=== PATIENT | male | born 1995 | race African-American/Black ===

== ENCOUNTER 2023-04-10 09:13 | Inpatient (IN) | payer MEDICAID, OTHER ==
[~2023-04-10] VITALS: Ht 185.4 cm; Wt 77.1 kg
[2023-04-10] MEDS ORDERED: IBUPROFEN 600MG TABLET PO ONE (11:15)
[2023-04-10] MEDS ORDERED: HYDROCODONE/ACETAMINOPHEN 5/325MG TABLET PO ONE (11:15)
[2023-04-10 13:25] LABS: CHLORIDE 103 mEq/L (98-107); INDEX HEMOLYSI 1 (1-3); INDEX ICTERIC 1 (1-4); INDEX LIPEMIC 1 (1-3); POTASSIUM 3.2 mEq/L (3.5-5.1); SODIUM 137 mEq/L (136-145)
[2023-04-10 13:34] LABS: ALANINE AMINOTRANSFERASE 44 IU/L (13-61); ALBUMIN 3.2 g/dL (3.4-5.0); ASPARTATE AMINOTRANSFERASE 17 IU/L (15-37); BILIRUBIN TOTAL 0.4 mg/dL (0.1-1.0); CALCIUM 8.1 mg/dL (8.5-10.1); CARBON DIOXIDE 27 mEq/L (21-32); CREATININE 0.9 mg/dL (0.6-1.3); GLUCOSE 148 mg/dL (70-105); HEMATOCRIT. 44.9 % (42.0-52.0); HEMOGLOBIN. 14.4 g/dL (14.0-18.0); MEAN CORPUSCULAR VOLUME 90.5 fL (80.0-94.0); MEAN PLATELET VOLUME 9.9 fl (7.4-10.4); PLATELET 171 x1000/uL (130-400); PROTEIN TOTAL 6.7 g/dL (6.0-8.3); RED BLOOD CELL COUNT 4.96 mill/uL (4.7-6.1); UREA NITROGEN BLOOD 15 mg/dL (7-21); WHITE BLOOD COUNT 11.7 x1000/uL (4.5-11.0)
[2023-04-10 13:38] LABS: DIFFERENTIAL COMMENT 1
[2023-04-10 14:13] LABS: PLATELET ESTIMATE NORMAL
[2023-04-10] MEDS ORDERED: VANCOMYCIN 1G PREMIX 200 ML IV SCH (15:15)
[2023-04-10] MEDS ORDERED: LEVOFLOXACIN 500MG PREMIX 100 ML IV ONE (15:15)
[2023-04-10] MEDS ORDERED: POTASSIUM CHLORIDE 20MEQ/PACKET PO ONE (15:45)
[2023-04-10 20:00] VITALS: BP 110/67; PULSE 96; RESP 20; TEMP 97.2
[2023-04-10 23:30] VITALS: BP 110/67; PULSE 96; RESP 20; TEMP 97.2
[2023-04-11] VITALS: BP 115/54; PULSE 112; RESP 20; TEMP 98.4
[2023-04-11] MEDS: HYDROCODONE/ACETAMINOPHEN 5/325MG TABLET PO PRN ×3 (00:10→23:49)
[2023-04-11 04:00] VITALS: BP 93/51; PULSE 108; RESP 20; TEMP 100.6
[2023-04-11] MEDS ORDERED: *PATIENT'S OWN MEDICATION STORAGE XX SCH (06:15)
[2023-04-11] MEDS: VANCOMYCIN 1G PREMIX 200 ML IV SCH ×3 (06:43→21:39)
[2023-04-11 07:12] LABS: HEMATOCRIT 45.3 % (42.0-52.0); HEMOGLOBIN 15.2 g/dL (14.0-18.0); MEAN CORPUSCULAR HEMOGLOBIN 30.3 pg (28.0-32.0); MEAN CORPUSCULAR HGB CONC 33.5 g/dL (31.0-37.0); MEAN CORPUSCULAR VOLUME 90.4 fL (80.0-94.0); PLATELET 169 x1000/uL (130-400); RED BLOOD CELL COUNT 5.01 mill/uL (4.7-6.1)
[2023-04-11 08:00] VITALS: BP 87/38; PULSE 91; RESP 20; TEMP 97.5
[2023-04-11 08:09] LABS: CHLORIDE 100 mEq/L (98-107); INDEX HEMOLYSI 1 (1-3); INDEX ICTERIC 1 (1-4); INDEX LIPEMIC 1 (1-3); POTASSIUM 3.4 mEq/L (3.5-5.1); SODIUM 134 mEq/L (136-145)
[2023-04-11 08:15] LABS: CALCIUM 7.9 mg/dL (8.5-10.1); CARBON DIOXIDE 26 mEq/L (21-32); GLUCOSE 97 mg/dL (70-105); UREA NITROGEN BLOOD 15 mg/dL (7-21)
[2023-04-11 12:00] VITALS: BP 86/50; PULSE 98; RESP 19; TEMP 97.6
[2023-04-11] MEDS ORDERED: SODIUM CHLORIDE 0.9% 1,000 ML IV NR (12:23)
[2023-04-11 16:00] VITALS: BP 104/52; PULSE 94; RESP 20; TEMP 98.1
[2023-04-11] MEDS ORDERED: NALOXONE HCL 0.4MG/ML VIAL IV PRN (17:45)
[2023-04-11 20:00] VITALS: BP 122/63; PULSE 87; RESP 20; TEMP 98.2
[2023-04-12] VITALS: BP 116/77; PULSE 85; RESP 20; TEMP 97.8
[2023-04-12 01:23] LABS: CLARITY URINE CLEAR (CLEAR); GLUCOSE URINE NEGATIVE (NEGATIVE); KETONES URINE NEGATIVE (NEGATIVE); LEUKOCYTE ESTERASE URINE NEGATIVE (NEGATIVE); NITRITE URINE NEGATIVE (NEGATIVE); OCCULT BLOOD URINE NEGATIVE (NEGATIVE); PROTEIN URINE NEGATIVE (NEGATIVE); SPECIFIC GRAVITY URINE 1.008 (1.005-1.030)
[2023-04-12 01:26] LABS: BACTERIA URINE NONE SEEN; WBC URINE 0-2 /hpf (0-2); YEAST URINE NONE SEEN
[2023-04-12 01:47] LABS: *AMPHETAMINES SCREEN URINE NEGATIVE (NEGATIVE); *BARBITURATES SCREEN URINE NEGATIVE (NEGATIVE); *BENZODIAZEPINES SCREEN URINE NEGATIVE (NEGATIVE); *COCAINE SCREEN URINE NEGATIVE (NEGATIVE); CANNABINOID URINE SCREEN PRESUMTIVE POSITIVE (NEGATIVE); ECSTASY MDMA SCREEN URINE NEGATIVE (NEGATIVE); OPIATES URINE SCREEN PRESUMTIVE POSITIVE (NEGATIVE); PHENCYCLIDINE URINE SCREEN NEGATIVE (NEGATIVE)
[2023-04-12 02:37] LABS: COLOR URINE YELLOW (YELLOW)
[2023-04-12 02:46] LABS: SQUAMOUS EPITHELIAL CELL URINE FEW /lpf (RARE/1+)
[2023-04-12 02:47] LABS: RBC URINE 0-2 /hpf (0-2)
[2023-04-12 04:00] VITALS: BP 136/46; PULSE 78; RESP 20; TEMP 97.5
[2023-04-12 04:19] LABS: BASOPHILS % 0.3 % (0.0-2.0); EOSINOPHILS % 2.1 % (0.0-5.0); HEMATOCRIT. 40.6 % (42.0-52.0); HEMOGLOBIN. 13.2 g/dL (14.0-18.0); LYMPHOCYTES % 11.2 % (20.0-50.0); MEAN CORPUSCULAR HEMOGLOBIN 29.3 pg (28.0-32.0); MEAN CORPUSCULAR HGB CONC 32.5 g/dL (31.0-37.0); MEAN CORPUSCULAR VOLUME 90.1 fL (80.0-94.0); MEAN PLATELET VOLUME 9.5 fl (7.4-10.4); NEUTROPHILS % 80.4 % (40.0-76.0); PLATELET 172 x1000/uL (130-400); RED BLOOD CELL COUNT 4.51 mill/uL (4.7-6.1); RED CELL DISTRIBUTION WIDTH 12.8 % (11.6-14.6); WHITE BLOOD COUNT 13.8 x1000/uL (4.5-11.0)
[2023-04-12 04:29] LABS: CHLORIDE 103 mEq/L (98-107); INDEX HEMOLYSI 1 (1-3); INDEX ICTERIC 1 (1-4); INDEX LIPEMIC 1 (1-3); POTASSIUM 3.5 mEq/L (3.5-5.1); SODIUM 138 mEq/L (136-145)
[2023-04-12 04:36] LABS: CALCIUM 7.8 mg/dL (8.5-10.1); CARBON DIOXIDE 31 mEq/L (21-32); GLUCOSE 101 mg/dL (70-105); UREA NITROGEN BLOOD 10 mg/dL (7-21); VANCOMYCIN TROUGH 9.7 ug/mL (5.0-10.0)
[2023-04-12] MEDS: VANCOMYCIN 1G PREMIX 200 ML IV SCH (05:43)
[2023-04-12 08:00] VITALS: BP 117/68; PULSE 64; RESP 18; TEMP 97.9
[2023-04-12] MEDS: HYDROCODONE/ACETAMINOPHEN 5/325MG TABLET PO PRN (10:21)
[2023-04-12] MEDS ORDERED: DIPHENHYDRAMINE 50MG/ML VIAL IV PRN (10:45)
[2023-04-12 12:00] VITALS: BP 119/78; PULSE 70; RESP 19; TEMP 97.5
[2023-04-12] MEDS: VANCOMYCIN 1.25GM PMX (XELLIA) 250 ML IV SCH ×2 (13:26→21:31)
[2023-04-12 16:00] VITALS: BP 106/70; PULSE 81; RESP 18; TEMP 97.6
[2023-04-12] MEDS: PANTOT AC/MIN OIL/PET HY-PHL OINT (AQUAPHOR) TOP SCH (18:45)
[2023-04-12 20:00] VITALS: BP 108/69; PULSE 78; RESP 18; TEMP 97.5
[2023-04-13] VITALS: BP 101/65; PULSE 76; RESP 18; TEMP 97.3
[2023-04-13 04:00] VITALS: BP 112/68; PULSE 74; RESP 20; TEMP 97.5
[2023-04-13 05:48] LABS: CHLORIDE 105 mEq/L (98-107); INDEX HEMOLYSI 1 (1-3); INDEX ICTERIC 1 (1-4); INDEX LIPEMIC 1 (1-3); POTASSIUM 3.8 mEq/L (3.5-5.1); SODIUM 138 mEq/L (136-145)
[2023-04-13 05:55] LABS: CALCIUM 7.9 mg/dL (8.5-10.1); CARBON DIOXIDE 24 mEq/L (21-32); CREATININE 0.7 mg/dL (0.6-1.3); GLUCOSE 91 mg/dL (70-105); UREA NITROGEN BLOOD 8 mg/dL (7-21)
[2023-04-13] MEDS: VANCOMYCIN 1.25GM PMX (XELLIA) 250 ML IV SCH ×2 (06:22→14:46)
[2023-04-13] MEDS: HYDROCODONE/ACETAMINOPHEN 5/325MG TABLET PO PRN ×2 (07:09→14:57)
[2023-04-13 08:00] VITALS: BP 92/50; PULSE 55; RESP 19; TEMP 96.9
[2023-04-13] MEDS: PANTOT AC/MIN OIL/PET HY-PHL OINT (AQUAPHOR) TOP SCH (08:59)
[2023-04-13 12:00] VITALS: BP 113/73; PULSE 82; RESP 18; TEMP 97.9
[2023-04-13] MEDS: VANCOMYCIN 1G PREMIX 200 ML IV SCH ×2 (14:57→21:27)
[2023-04-13 16:00] VITALS: BP 104/62; PULSE 105; RESP 19; TEMP 97.7
[2023-04-13 20:00] VITALS: BP 96/62; PULSE 79; RESP 16; TEMP 97.6
[2023-04-14] VITALS: BP 107/75; PULSE 85; RESP 16
[2023-04-14] MEDS: HYDROCODONE/ACETAMINOPHEN 5/325MG TABLET PO PRN (03:34)
[2023-04-14 04:00] VITALS: BP 104/57; PULSE 53; RESP 14; TEMP 97.9
[2023-04-14] MEDS: VANCOMYCIN 1G PREMIX 200 ML IV SCH ×2 (05:55→13:25)
[2023-04-14 07:05] LABS: BASOPHILS % 0.5 % (0.0-2.0); EOSINOPHILS % 2.8 % (0.0-5.0); HEMATOCRIT. 45.1 % (42.0-52.0); HEMOGLOBIN. 14.9 g/dL (14.0-18.0); LYMPHOCYTES % 31.9 % (20.0-50.0); MEAN CORPUSCULAR HEMOGLOBIN 29.7 pg (28.0-32.0); MEAN CORPUSCULAR VOLUME 90.1 fL (80.0-94.0); MEAN PLATELET VOLUME 9.9 fl (7.4-10.4); MONOCYTES % 9.2 % (2.0-8.0); NEUTROPHILS % 55.6 % (40.0-76.0); PLATELET 253 x1000/uL (130-400); RED BLOOD CELL COUNT 5.01 mill/uL (4.7-6.1); RED CELL DISTRIBUTION WIDTH 12.6 % (11.6-14.6); WHITE BLOOD COUNT 8.5 x1000/uL (4.5-11.0)
[2023-04-14 07:50] LABS: CHLORIDE 104 mEq/L (98-107); INDEX HEMOLYSI 2 (1-3); INDEX ICTERIC 1 (1-4); INDEX LIPEMIC 1 (1-3); POTASSIUM 3.8 mEq/L (3.5-5.1); SODIUM 137 mEq/L (136-145)
[2023-04-14 07:56] LABS: CALCIUM 8.5 mg/dL (8.5-10.1); CARBON DIOXIDE 25 mEq/L (21-32); CREATININE 0.8 mg/dL (0.6-1.3); GLUCOSE 82 mg/dL (70-105); UREA NITROGEN BLOOD 12 mg/dL (7-21)
[2023-04-14 08:00] VITALS: BP 117/83; PULSE 88; RESP 18; TEMP 97.7
[2023-04-14] MEDS: PANTOT AC/MIN OIL/PET HY-PHL OINT (AQUAPHOR) TOP SCH (08:46)
[2023-04-14 12:00] VITALS: BP 104/56; PULSE 72; RESP 20; TEMP 97.6
[2023-04-14 16:00] VITALS: BP 115/60; PULSE 74; RESP 19; TEMP 97.5
[2023-04-14] MEDS ORDERED: SULF1TAB48 MT ×2 (19:07)
[2023-04-14 20:00] VITALS: BP 92/55; PULSE 67; RESP 16; TEMP 98.4
[2023-04-14] MEDS: CEFAZOLIN 2000MG in DEXTROSE 5% WATER 100ML IV SCH (21:16)
[2023-04-14] MEDS ORDERED: CEFAZOLIN SODIUM 1000MG/VIAL IV SCH ×2 (22:00)
[2023-04-15] MEDS: CEFAZOLIN 2000MG in DEXTROSE 5% WATER 100ML IV SCH ×2 (04:36→11:15)
[2023-04-15] MEDS ORDERED: AMOX1TAB16 MT (05:44)
[2023-04-15 06:44] LABS: CHLORIDE 104 mEq/L (98-107); INDEX HEMOLYSI 1 (1-3); INDEX ICTERIC 1 (1-4); INDEX LIPEMIC 1 (1-3); POTASSIUM 3.8 mEq/L (3.5-5.1); SODIUM 138 mEq/L (136-145)
[2023-04-15 06:51] LABS: CALCIUM 8.4 mg/dL (8.5-10.1); CARBON DIOXIDE 27 mEq/L (21-32); GLUCOSE 103 mg/dL (70-105); UREA NITROGEN BLOOD 9 mg/dL (7-21); VANCOMYCIN TROUGH 6.5 ug/mL (5.0-10.0)
[2023-04-15 08:00] VITALS: BP 107/59; PULSE 63; RESP 20; TEMP 96.9
[2023-04-15] MEDS: PANTOT AC/MIN OIL/PET HY-PHL OINT (AQUAPHOR) TOP SCH (08:54)
[2023-04-15 12:01] VITALS: BP 101/59; PULSE 63; TEMP 96.9; O2SAT 99
[2023-04-15] MEDS: HYDROCODONE/ACETAMINOPHEN 5/325MG TABLET PO PRN (14:21)
== END 2023-04-15 15:30 | disposition home or self-care (01) | DRG 720 ==
LOC: ER 09:13 → 6EST 19:24
PROVIDERS: ADMIT Internal Medicine; ATTEND Internal Medicine
DX: A41.9 Sepsis, unspecified organism (principal); R65.21 Severe sepsis with septic shock; L97.521 Non-pressure chronic ulcer of other part of left foot limited to breakdown of skin; E87.1 Hypo-osmolality and hyponatremia; E87.6 Hypokalemia; L03.116 Cellulitis of left lower limb; L03.115 Cellulitis of right lower limb; F17.210 Nicotine dependence, cigarettes, uncomplicated; Z91.014 Allergy to mammalian meats; Z59.00 Homelessness unspecified
CPT/HCPCS: 36415; 71045; 73630; 80048; 80053; 80202; 80305; 81003; 83605; 84145; 85025; 85027; 85651; 87070; 87075; 87077; 87186; 97162; 99285; J0690; J1956; J3370; J7060